=== PATIENT | male | born 1985 ===

== ENCOUNTER 2020-09-03 09:39 | Outpatient (CLI) | payer MEDICAID ==
--- NOTE | 2020-09-03 12:00 | Consultation ---
DATE OF CONSULTATION: 09/03/2020 GASTROENTEROLOGY CONSULTATION CONSULTING PHYSICIAN: Carlos Pittman MD. CHIEF COMPLAINT: Bloating. PAST MEDICAL HISTORY: None. PAST SURGICAL HISTORY: Appendectomy. MEDICATIONS: Probiotics. FAMILY HISTORY: No family history of GI malignancies. SOCIAL HISTORY: The patient denies any tobacco, alcohol, or drug abuse. ALLERGIES: No known allergies. REVIEW OF SYSTEMS: Positive for bloating, gas. No constipation. No diarrhea. No blood in the stool. The patient has some weight loss, but it is intentional. The patient has also some complaint of some fatigue. PHYSICAL EXAMINATION: VITAL SIGNS: Temperature 97.7, pulse is 63, respirations 20, blood pressure 120/50. HEENT: Normocephalic and atraumatic. Sclerae are anicteric. NECK: Supple. No evidence of obvious lymphadenopathy. CARDIOVASCULAR: Regular rate and rhythm. Plus S1-S2. LUNGS: Clear to auscultation bilaterally. ABDOMEN: Positive bowel sounds. Soft and nontender. No rebound. No guarding. No peritoneal sign. EXTREMITIES: No cyanosis, no clubbing, no edema. ASSESSMENT: This is a 35-year-old male with signs and symptoms suspicious for SIBO, not responding to probiotics. PLAN: Trial of the Augmentin for 10 days twice a day and then followed by probiotics. Given sample of Align. The patient to come back if no improvement in his symptoms. Carlos Pittman M.D. DR: BABS JOB#: [id number] CC:
== END 2020-09-03 11:39 | disposition home or self-care (01) ==
LOC: PAN 09:39
DX: R14.0 Abdominal distension (gaseous) (principal); Z90.89 Acquired absence of other organs; Z79.899 Other long term (current) drug therapy; R63.4 Abnormal weight loss
CPT/HCPCS: G0463